=== PATIENT | male | born 1980 | race Caucasian/White ===

== ENCOUNTER 2017-09-19 01:36 | Inpatient (IN) | payer OTHER ==
[~2017-09-19] VITALS: Ht 175.3 cm; Wt 93.9 kg
[2017-09-19 02:37] LABS: HEMATOCRIT 42.9 % (38.0-50.0); HEMOGLOBIN 14.5 G/DL (12.5-16.6); MCH 29.1 PG (29.0-34.0); MCHC 33.8 G/DL (30.0-36.0); PLATELET COUNT 315 K/uL (156-360); RBC DIS.WIDTH-CV 13.4 % (11.8-14.6); RBC DIS.WIDTH-SD 42.1 % (39-53); RED BLOOD COUNT 4.99 M/uL (4.00-5.50); WHITE BLOOD COUNT 6.8 K/uL (4.1-10.2)
[2017-09-19 02:48] LABS: ALBUMIN 4.5 g/dL (3.2-4.8)
[2017-09-19 02:49] LABS: CHLORIDE 111 mEq/L (99-109); POTASSIUM 3.8 mEq/L (3.7-5.4); SODIUM 145 mEq/L (136-147)
[2017-09-19 02:51] LABS: GLUCOSE 92 mg/dL (70-99); TOTAL PROTEIN 7.2 g/dL (6.4-8.3)
[2017-09-19 02:53] LABS: TOTAL BILIRUBIN 0.3 mg/dL (0.0-1.0)
[2017-09-19 02:54] LABS: ALKALINE PHOSPHATASE 93 IU/L (3-129)
[2017-09-19 02:55] LABS: CREATININE 0.8 mg/dL (0.6-1.3)
[2017-09-19 02:56] LABS: AST (GOT) 9 IU/L (2-34); UREA NITROGEN (BUN) 9 mg/dL (9-23)
[2017-09-19 02:57] LABS: ALT (GPT) 12 IU/L (3-49)
[2017-09-19 02:58] LABS: LIPASE 23 U/L (1.0-51.0)
[2017-09-19 03:05] LABS: GFR ESTIMATE (CALCULATED) > 59 mL/min/ (58.99-99999)
[2017-09-19 05:16] LABS: TROP-I INTERPRETATION NEGATIVE; TROPONIN-I < 0.01 ng/mL (0.0-0.30)
[2017-09-19 06:19] LABS: APPEARANCE SL.HAZY ((CLEAR)); BILIRUBIN NEGATIVE; BLOOD NEGATIVE; COLOR YELLOW ((YELLOW)); GLUCOSE (STRIP) NEGATIVE; KETONES NEGATIVE; LEUKOCYTES NEGATIVE; NITRITE NEGATIVE; PROTEIN (STRIP) 30
[2017-09-19 06:25] LABS: BACTERIA RARE /HPF; EPITHELIAL CELLS NONE SEEN /HPF; MUCUS 4+ /LPF; RED BLOOD CELLS 0-5 /HPF (0-5); UCUL ADDED? NO; WHITE BLOOD CELLS 0-5 /HPF (0-5)
[2017-09-19] MEDS ORDERED: MOTRIN IB200 MG PO (08:13)
[2017-09-19 11:50] VITALS: BP 127/82
[2017-09-19 16:33] VITALS: BP 136/85
[2017-09-19 20:09] VITALS: BP 116/57
[2017-09-19 23:52] VITALS: BP 127/70
[2017-09-20 04:16] VITALS: BP 117/68
[2017-09-20 08:10] VITALS: BP 100/57
[2017-09-20 11:32] VITALS: BP 122/70
[2017-09-20 15:10] VITALS: BP 124/74
[2017-09-20 19:15] VITALS: BP 108/62
[2017-09-20 23:05] VITALS: BP 120/63
[2017-09-21 04:00] VITALS: BP 129/76
[2017-09-21 05:31] LABS: HEMATOCRIT 39.9 % (38.0-50.0); HEMOGLOBIN 13.3 G/DL (12.5-16.6); MCH 28.7 PG (29.0-34.0); MCHC 33.3 G/DL (30.0-36.0); PLATELET COUNT 290 K/uL (156-360); RBC DIS.WIDTH-SD 40.7 % (39-53); RED BLOOD COUNT 4.64 M/uL (4.00-5.50); WHITE BLOOD COUNT 5.8 K/uL (4.1-10.2)
[2017-09-21 05:57] LABS: CHLORIDE 110 MEQ/L (99-109); CREATININE 0.8 MG/DL (0.6-1.3); GFR ESTIMATE (CALCULATED) > 59 mL/min/ (58.99-99999); GLUCOSE 83 mg/dL (70-99); POTASSIUM 3.7 MEQ/L (3.7-5.4); SODIUM 141 MEQ/L (136-147); UREA NITROGEN (BUN) 4 mg/dL (9-23)
[2017-09-21 09:00] VITALS: BP 122/76
[2017-09-21 10:50] VITALS: BP 129/72
[2017-09-21 15:13] VITALS: BP 133/80
[2017-09-21 23:21] VITALS: BP 125/60
[2017-09-22 03:47] VITALS: BP 124/84
[2017-09-22 07:13] VITALS: BP 131/78
[2017-09-22 11:30] VITALS: BP 119/63
[2017-09-22 15:34] VITALS: BP 110/66
[2017-09-22 15:37] VITALS: BP 148/79
[2017-09-22 23:16] VITALS: BP 108/58
[2017-09-23 07:35] VITALS: BP 134/79
== END 2017-09-23 09:08 | disposition home or self-care (01) | DRG 395 ==
LOC: EME 01:36 → EDOF 08:18 → 4SOUTH 08:18 → ENRESERV 08:19 → 4SOUTH 16:03 → ENPENDDIS 09-23 → 4SOUTH 09-23 09:08
PROVIDERS: Physician Assistant Surgical
DX: T18.9XXA Foreign body of alimentary tract, part unspecified, initial encounter (principal); W11.XXXA Fall on and from ladder, initial encounter; F17.210 Nicotine dependence, cigarettes, uncomplicated; E11.9 Type 2 diabetes mellitus without complications
CPT/HCPCS: 71046; 74018; 74019; 74177; 80048; 80053; 81003; 83690; 84484; 85027; 99281; 99285; G0378; J2405; J3010; J7030; S0028

== ENCOUNTER 2017-10-29 10:43 | Emergency (ER) | payer OTHER ==
[~2017-10-29] VITALS: Ht 175.3 cm; Wt 93.3 kg
[~2017-10-29 10:43] MED LIST: MOTRIN IB200 MG PO
[2017-10-29 11:54] LABS: BASOPHIL (%) 0.5 % (0-1); EOSINOPHIL (%) 1.8 % (0-5); EOSINOPHIL COUNT 0.1 K/uL (0-0.3); HEMATOCRIT 39.8 % (38.0-50.0); HEMOGLOBIN 13.9 G/DL (12.5-16.6); IMMATURE GRANULOCYTE (%) 0.4 % (0.0-0.7); LYMPHOCYTE (%) 17.9 % (15-42); MCH 28.8 PG (29.0-34.0); MCHC 34.9 G/DL (30.0-36.0); MCV 82.6 FL (86-99); MONOCYTE (%) 6.7 % (3-12); MONOCYTE COUNT 0.4 K/uL (0-0.8); NEUTROPHIL (%) 72.7 % (45-76); PLATELET COUNT 269 K/uL (156-360); RBC DIS.WIDTH-CV 12.5 % (11.8-14.6); RBC DIS.WIDTH-SD 37.9 % (39-53); RED BLOOD COUNT 4.82 M/uL (4.00-5.50); WHITE BLOOD COUNT 5.5 K/uL (4.1-10.2)
[2017-10-29 12:02] LABS: D-DIMER ELISA < 150.00 ng/mLDDU (<230)
[2017-10-29 12:03] LABS: PTT 29.7 SEC (25-37)
[2017-10-29 12:06] LABS: CHLORIDE 106 mEq/L (99-109); POTASSIUM 3.6 mEq/L (3.7-5.4); SODIUM 140 mEq/L (136-147)
[2017-10-29 12:08] LABS: GLUCOSE 103 mg/dL (70-99)
[2017-10-29 12:12] LABS: CREATININE 0.8 mg/dL (0.6-1.3); GFR ESTIMATE (CALCULATED) > 59 mL/min/ (58.99-99999); UREA NITROGEN (BUN) 9 mg/dL (9-23)
[2017-10-29 12:18] LABS: TROP-I INTERPRETATION NEGATIVE; TROPONIN-I < 0.01 ng/mL (0.0-0.30)
[2017-10-29 14:11] LABS: TROP-I INTERPRETATION NEGATIVE; TROPONIN-I < 0.01 ng/mL (0.0-0.30)
[2017-10-29] MEDS ORDERED: MOTRIN800 MG PO (14:50)
[2017-10-29 14:54] VITALS: BP 128/74
== END 2017-10-29 14:59 | disposition home or self-care (01) ==
LOC: EME 10:43
PROVIDERS: Emergency Medicine
DX: R07.89 Other chest pain (principal); F17.200 Nicotine dependence, unspecified, uncomplicated; Z79.891 Long term (current) use of opiate analgesic; Z95.9 Presence of cardiac and vascular implant and graft, unspecified
CPT/HCPCS: 71045; 80048; 84484; 85025; 85379; 85610; 85730; 93005; 99281; 99284; J1885

== ENCOUNTER 2017-11-30 11:52 | Emergency (ER) | payer OTHER ==
[~2017-11-30] VITALS: Ht 175.3 cm; Wt 90.9 kg
[~2017-11-30 11:52] MED LIST changes: +MOTRIN800 MG PO
[2017-11-30 12:21] LABS: HEMATOCRIT 39.5 % (38.0-50.0); HEMOGLOBIN 13.6 G/DL (12.5-16.6); MCH 29.1 PG (29.0-34.0); MCHC 34.4 G/DL (30.0-36.0); MCV 84.6 FL (86-99); PLATELET COUNT 294 K/uL (156-360); RBC DIS.WIDTH-CV 12.5 % (11.8-14.6); RBC DIS.WIDTH-SD 37.9 % (39-53); RED BLOOD COUNT 4.67 M/uL (4.00-5.50); WHITE BLOOD COUNT 7.4 K/uL (4.1-10.2)
[2017-11-30 12:31] LABS: CHLORIDE 106 mEq/L (99-109); POTASSIUM 4.1 mEq/L (3.7-5.4); SODIUM 139 mEq/L (136-147)
[2017-11-30 12:33] LABS: GLUCOSE 134 mg/dL (70-99)
[2017-11-30 12:37] LABS: CREATININE 0.9 mg/dL (0.6-1.3); GFR ESTIMATE (CALCULATED) > 59 mL/min/ (58.99-99999)
[2017-11-30 12:38] LABS: UREA NITROGEN (BUN) 13 mg/dL (9-23)
[2017-11-30 13:54] LABS: APPEARANCE CLEAR ((CLEAR)); BILIRUBIN NEGATIVE; BLOOD NEGATIVE; COLOR STRAW ((YELLOW)); GLUCOSE (STRIP) NEGATIVE; KETONES NEGATIVE; LEUKOCYTES NEGATIVE; NITRITE NEGATIVE; PROTEIN (STRIP) NEGATIVE; SPECIFIC GRAVITY 1.012 (1.000-1.030); UCUL ADDED? NO; UROBILINOGEN 0.2 MG/DL (0.2-1.0)
[2017-11-30 14:22] LABS: SERUM ETHYL ALCOHOL < 10 mg/dL
[2017-11-30] MEDS ORDERED: B-1100 MG PO (15:39)
[2017-11-30] MEDS ORDERED: LIBRIUM25 MG PO (15:39)
[2017-11-30] MEDS ORDERED: ZOFRAN4 MG PO (15:42)
[2017-11-30] MEDS ORDERED: PHENERGAN25 MG PR (15:42)
[2017-11-30 15:51] LABS: AMPHETAMINE NEGATIVE (500 ng/mL); BARBITURATES NEGATIVE (200 ng/mL); BENZODIAZEPINES NEGATIVE (150 ng/mL); BUPRENORPHINE PRESUMPTIVE POSITIVE (10 ng/mL); COCAINE NEGATIVE (150 ng/mL); METHADONE NEGATIVE (200 ng/mL); METHAMPHETAMINE NEGATIVE (500 ng/mL); OPIATES (MORPHINE) NEGATIVE (100 ng/mL); OXYCODONE NEGATIVE (100 ng/mL); PHENCYCLIDINE NEGATIVE (25 ng/mL); PROPOXYPHENE NEGATIVE (300 ng/mL); THC CANNABINOIDS NEGATIVE (50 ng/mL); TRICYCLIC ANTIDEPRESSANTS NEGATIVE (300 ng/mL)
[2017-11-30 16:00] VITALS: BP 150/94
== END 2017-11-30 17:56 | disposition left against medical advice (07) ==
LOC: EME 11:52
PROVIDERS: Nurse Practitioner Family
DX: F10.239 Alcohol dependence with withdrawal, unspecified (principal); R56.9 Unspecified convulsions; R11.2 Nausea with vomiting, unspecified; F11.20 Opioid dependence, uncomplicated; R00.0 Tachycardia, unspecified; Z72.0 Tobacco use
CPT/HCPCS: 80048; 80156; 80184; 80185; 81003; 85027; G0480; J2060; J2405; S0028

== ENCOUNTER 2017-12-20 18:16 | Observation (INO) | payer OTHER ==
[~2017-12-20] VITALS: Ht 175.3 cm; Wt 88.0 kg
[~2017-12-20 18:16] MED LIST changes: +B-1100 MG PO; +LIBRIUM25 MG PO; +PHENERGAN25 MG PR; +ZOFRAN4 MG PO
[2017-12-20 19:15] LABS: BASOPHIL (%) 0.6 % (0-1); BASOPHIL COUNT 0.1 K/uL (0-0.1); EOSINOPHIL (%) 0.1 % (0-5); HEMATOCRIT 33.5 % (38.0-50.0); HEMOGLOBIN 11.9 G/DL (12.5-16.6); IMMATURE GRANULOCYTE (%) 0.4 % (0.0-0.7); LYMPHOCYTE (%) 19.4 % (15-42); LYMPHOCYTE COUNT 1.7 K/uL (1.0-2.8); MCH 28.9 PG (29.0-34.0); MCHC 35.5 G/DL (30.0-36.0); MCV 81.3 FL (86-99); MONOCYTE (%) 8.5 % (3-12); MONOCYTE COUNT 0.7 K/uL (0-0.8); NEUTROPHIL COUNT 6.1 K/uL (1.8-6.4); PLATELET COUNT 314 K/uL (156-360); RBC DIS.WIDTH-CV 12.9 % (11.8-14.6); RBC DIS.WIDTH-SD 37.6 % (39-53); RED BLOOD COUNT 4.12 M/uL (4.00-5.50); WHITE BLOOD COUNT 8.6 K/uL (4.1-10.2)
[2017-12-20 19:29] LABS: ALBUMIN 4.5 g/dL (3.2-4.8); CHLORIDE 106 mEq/L (99-109); POTASSIUM 3.1 mEq/L (3.7-5.4); SODIUM 143 mEq/L (136-147)
[2017-12-20 19:32] LABS: GLUCOSE 103 mg/dL (70-99); TOTAL PROTEIN 7.4 g/dL (6.4-8.3)
[2017-12-20 19:34] LABS: TOTAL BILIRUBIN 0.8 mg/dL (0.0-1.0)
[2017-12-20 19:35] LABS: ALKALINE PHOSPHATASE 76 IU/L (3-129); SERUM ETHYL ALCOHOL < 10 mg/dL
[2017-12-20 19:36] LABS: CREATININE 0.8 mg/dL (0.6-1.3); GFR ESTIMATE (CALCULATED) > 59 mL/min/ (58.99-99999)
[2017-12-20 19:37] LABS: AST (GOT) 15 IU/L (2-34); UREA NITROGEN (BUN) 12 mg/dL (9-23)
[2017-12-20 19:38] LABS: ALT (GPT) 20 IU/L (3-49)
[2017-12-20 19:39] LABS: LIPASE 61 U/L (1.0-51.0)
[2017-12-20 21:40] LABS: APPEARANCE CLEAR ((CLEAR)); BILIRUBIN NEGATIVE; BLOOD NEGATIVE; COLOR YELLOW ((YELLOW)); GLUCOSE (STRIP) NEGATIVE; KETONES 20; LEUKOCYTES NEGATIVE; NITRITE NEGATIVE; PROTEIN (STRIP) 30; UROBILINOGEN 0.2 MG/DL (0.2-1.0)
[2017-12-20 21:42] LABS: SPECIFIC GRAVITY > 1.060 (1.000-1.030)
[2017-12-20 21:49] LABS: AMPHETAMINE NEGATIVE (500 ng/mL); BARBITURATES NEGATIVE (200 ng/mL); BENZODIAZEPINES PRESUMPTIVE POSITIVE (150 ng/mL); BUPRENORPHINE NEGATIVE (10 ng/mL); COCAINE NEGATIVE (150 ng/mL); METHADONE NEGATIVE (200 ng/mL); METHAMPHETAMINE NEGATIVE (500 ng/mL); OPIATES (MORPHINE) NEGATIVE (100 ng/mL); OXYCODONE NEGATIVE (100 ng/mL); PHENCYCLIDINE NEGATIVE (25 ng/mL); PROPOXYPHENE NEGATIVE (300 ng/mL); THC CANNABINOIDS NEGATIVE (50 ng/mL); TRICYCLIC ANTIDEPRESSANTS NEGATIVE (300 ng/mL)
[2017-12-20] MEDS ORDERED: BENTYL10 MG PO (21:59)
[2017-12-20] MEDS ORDERED: ZOFRAN4 MG PO (21:59)
[2017-12-20 22:24] LABS: BENZODIAZEPINES, URINE SCREEN POSITIVE (200 ng/mL)
[2017-12-21 00:54] VITALS: BP 138/82
[2017-12-21 04:22] LABS: BASOPHIL (%) 0.6 % (0-1); EOSINOPHIL (%) 1.3 % (0-5); EOSINOPHIL COUNT 0.1 K/uL (0-0.3); HEMATOCRIT 30.8 % (38.0-50.0); HEMOGLOBIN 10.7 G/DL (12.5-16.6); IMMATURE GRANULOCYTE (%) 0.3 % (0.0-0.7); LYMPHOCYTE (%) 25.8 % (15-42); LYMPHOCYTE COUNT 1.8 K/uL (1.0-2.8); MCH 28.7 PG (29.0-34.0); MCHC 34.7 G/DL (30.0-36.0); MCV 82.6 FL (86-99); MONOCYTE (%) 7.7 % (3-12); MONOCYTE COUNT 0.5 K/uL (0-0.8); NEUTROPHIL (%) 64.3 % (45-76); NEUTROPHIL COUNT 4.5 K/uL (1.8-6.4); PLATELET COUNT 282 K/uL (156-360); RBC DIS.WIDTH-SD 38.8 % (39-53); RED BLOOD COUNT 3.73 M/uL (4.00-5.50)
[2017-12-21 04:32] VITALS: BP 118/67
[2017-12-21 04:37] LABS: ALBUMIN 3.9 g/dL (3.2-4.8); CHLORIDE 109 mEq/L (99-109); POTASSIUM 3.3 mEq/L (3.7-5.4); SODIUM 142 mEq/L (136-147)
[2017-12-21 04:39] LABS: GLUCOSE 89 mg/dL (70-99)
[2017-12-21 04:41] LABS: TOTAL BILIRUBIN 0.8 mg/dL (0.0-1.0)
[2017-12-21 04:43] LABS: ALKALINE PHOSPHATASE 66 IU/L (3-129); CREATININE 0.8 mg/dL (0.6-1.3); GFR ESTIMATE (CALCULATED) > 59 mL/min/ (58.99-99999)
[2017-12-21 04:44] LABS: UREA NITROGEN (BUN) 11 mg/dL (9-23)
[2017-12-21 04:45] LABS: AST (GOT) 12 IU/L (2-34)
[2017-12-21 04:46] LABS: ALT (GPT) 16 IU/L (3-49); LIPASE 59 U/L (1.0-51.0)
[2017-12-21 04:50] LABS: TOTAL PROTEIN 5.9 g/dL (6.4-8.3)
[2017-12-21 06:51] LABS: IRON 87 MCG/DL (35-150); TRANSFERRIN (TIBC) 205.2 mg/dL (215-380); TRANSFERRIN SATUR. 42 % (20-55)
[2017-12-21 08:04] LABS: FERRITIN 83 NG/ML (22-322)
[2017-12-21 08:13] LABS: FOLIC ACID (FOLATE) > 22.0 NG/ML (5.0-22.0)
[2017-12-21 08:37] VITALS: BP 123/68
[2017-12-21 11:57] VITALS: BP 109/56
[2017-12-21 15:31] VITALS: BP 126/73
[2017-12-21 19:00] VITALS: BP 135/76
[2017-12-22 02:41] VITALS: BP 177/86
[2017-12-22 05:11] LABS: CHLORIDE 103 mEq/L (99-109); POTASSIUM 3.1 mEq/L (3.7-5.4); SODIUM 140 mEq/L (136-147)
[2017-12-22 05:12] LABS: GLUCOSE 82 mg/dL (70-99)
[2017-12-22 05:16] LABS: CREATININE 0.8 mg/dL (0.6-1.3); GFR ESTIMATE (CALCULATED) > 59 mL/min/ (58.99-99999)
[2017-12-22 05:17] LABS: UREA NITROGEN (BUN) 7 mg/dL (9-23)
[2017-12-22 05:25] LABS: HEMATOCRIT 35.7 % (38.0-50.0); HEMOGLOBIN 12.6 G/DL (12.5-16.6); MCH 28.8 PG (29.0-34.0); MCHC 35.3 G/DL (30.0-36.0); MCV 81.7 FL (86-99); PLATELET COUNT 357 K/uL (156-360); RBC DIS.WIDTH-CV 12.6 % (11.8-14.6); RBC DIS.WIDTH-SD 37.1 % (39-53); RED BLOOD COUNT 4.37 M/uL (4.00-5.50); WHITE BLOOD COUNT 10.9 K/uL (4.1-10.2)
== END 2017-12-22 07:44 | disposition left against medical advice (07) ==
LOC: EME 18:16 → 4SOUTH 23:16 → EDOF 23:16 → ENRESERV 23:19 → 4SOUTH 12-21 00:41
PROVIDERS: Emergency Medicine; Hospitalist; Physician Assistant
PROC: 0DJ08ZZ Inspection of Upper Intestinal Tract, Via Natural or Artificial Opening Endoscopic (ICD-10-PCS; principal; 2017-12-21)
DX: R10.84 Generalized abdominal pain (principal); R11.2 Nausea with vomiting, unspecified; E87.6 Hypokalemia; T18.2XXA Foreign body in stomach, initial encounter; T65.892A Toxic effect of other specified substances, intentional self-harm, initial encounter; Y92.230 Patient room in hospital as the place of occurrence of the external cause; R45.851 Suicidal ideations; Z87.821 Personal history of retained foreign body fully removed; D50.9 Iron deficiency anemia, unspecified; Z87.891 Personal history of nicotine dependence; G89.29 Other chronic pain
CPT/HCPCS: 71045; 74018; 74177; 80048; 80053; 81003; 82272; 82607; 82728; 82746; 83540; 83690; 84466; 84999; 85025; 85027; 99281; 99285; G0378; G0480; J0330; J0500; J1885; J2270; J2405; J3010; J7030; S0028

== ENCOUNTER 2017-12-25 10:10 | Emergency (ER) | payer OTHER ==
[~2017-12-25] VITALS: Ht 175.3 cm; Wt 87.2 kg
[~2017-12-25 10:10] MED LIST changes: +BENTYL10 MG PO
[2017-12-25 10:20] VITALS: BP 173/107
[2017-12-25 10:49] LABS: HEMATOCRIT 37.6 % (38.0-50.0); HEMOGLOBIN 13.3 G/DL (12.5-16.6); MCH 28.5 PG (29.0-34.0); MCHC 35.4 G/DL (30.0-36.0); MCV 80.7 FL (86-99); PLATELET COUNT 328 K/uL (156-360); RBC DIS.WIDTH-CV 13.2 % (11.8-14.6); RBC DIS.WIDTH-SD 38.1 % (39-53); RED BLOOD COUNT 4.66 M/uL (4.00-5.50); WHITE BLOOD COUNT 7.7 K/uL (4.1-10.2)
[2017-12-25 10:56] LABS: ALBUMIN 4.9 g/dL (3.2-4.8); CHLORIDE 103 mEq/L (99-109); SODIUM 139 mEq/L (136-147)
[2017-12-25 10:58] LABS: GLUCOSE 123 mg/dL (70-99)
[2017-12-25 10:59] LABS: TOTAL PROTEIN 7.8 g/dL (6.4-8.3)
[2017-12-25 11:00] LABS: TOTAL BILIRUBIN 0.7 mg/dL (0.0-1.0)
[2017-12-25 11:02] LABS: ALKALINE PHOSPHATASE 85 IU/L (3-129); CREATININE 0.9 mg/dL (0.6-1.3); GFR ESTIMATE (CALCULATED) > 59 mL/min/ (58.99-99999)
[2017-12-25 11:03] LABS: UREA NITROGEN (BUN) 7 mg/dL (9-23)
[2017-12-25 11:04] LABS: AST (GOT) 12 IU/L (2-34)
[2017-12-25 11:05] LABS: ALT (GPT) 16 IU/L (3-49)
[2017-12-25 11:26] LABS: APPEARANCE CLEAR ((CLEAR)); BILIRUBIN NEGATIVE; BLOOD NEGATIVE; COLOR YELLOW ((YELLOW)); GLUCOSE (STRIP) NEGATIVE; KETONES 5; LEUKOCYTES NEGATIVE; NITRITE NEGATIVE; PROTEIN (STRIP) 30; SPECIFIC GRAVITY 1.025 (1.000-1.030); UCUL ADDED? NO
[2017-12-25 11:34] LABS: AMPHETAMINE NEGATIVE (500 ng/mL); BARBITURATES NEGATIVE (200 ng/mL); BENZODIAZEPINES PRESUMPTIVE POSITIVE (150 ng/mL); BUPRENORPHINE NEGATIVE (10 ng/mL); COCAINE NEGATIVE (150 ng/mL); METHADONE NEGATIVE (200 ng/mL); METHAMPHETAMINE NEGATIVE (500 ng/mL); OPIATES (MORPHINE) NEGATIVE (100 ng/mL); OXYCODONE NEGATIVE (100 ng/mL); PHENCYCLIDINE NEGATIVE (25 ng/mL); PROPOXYPHENE NEGATIVE (300 ng/mL); THC CANNABINOIDS NEGATIVE (50 ng/mL); TRICYCLIC ANTIDEPRESSANTS NEGATIVE (300 ng/mL)
[2017-12-25 12:25] LABS: BENZODIAZEPINES, URINE SCREEN POSITIVE (200 ng/mL)
[2017-12-25] MEDS ORDERED: K-DUR20 MEQ PO (15:20)
[2017-12-25] MEDS ORDERED: TYLENOL EXTRA500 MG PO (19:00)
[2017-12-25] MEDS ORDERED: BENADRYL25 MG PO (19:00)
== END 2017-12-25 11:37 | disposition left against medical advice (07) ==
LOC: EME 10:10
DX: R10.33 Periumbilical pain (principal); F41.9 Anxiety disorder, unspecified; Z87.891 Personal history of nicotine dependence
CPT/HCPCS: 80053; 81003; 84999; 85027; 99281; 99284; J2270

== ENCOUNTER 2017-12-25 12:59 | Emergency (ER) | payer OTHER ==
[2017-12-25 13:15] LABS: BASOPHIL (%) 0.4 % (0-1); EOSINOPHIL (%) 0.4 % (0-5); HEMATOCRIT 36.7 % (38.0-50.0); HEMOGLOBIN 12.9 G/DL (12.5-16.6); IMMATURE GRANULOCYTE (%) 0.3 % (0.0-0.7); LYMPHOCYTE (%) 18.7 % (15-42); LYMPHOCYTE COUNT 1.5 K/uL (1.0-2.8); MCH 28.7 PG (29.0-34.0); MCHC 35.1 G/DL (30.0-36.0); MCV 81.6 FL (86-99); MONOCYTE (%) 7.6 % (3-12); MONOCYTE COUNT 0.6 K/uL (0-0.8); NEUTROPHIL (%) 72.6 % (45-76); NEUTROPHIL COUNT 5.7 K/uL (1.8-6.4); PLATELET COUNT 304 K/uL (156-360); RBC DIS.WIDTH-CV 13.3 % (11.8-14.6); RBC DIS.WIDTH-SD 38.5 % (39-53); WHITE BLOOD COUNT 7.8 K/uL (4.1-10.2)
[2017-12-25 13:25] LABS: AMYLASE 38 IU/L (1-118); CHLORIDE 103 mEq/L (99-109); POTASSIUM 2.9 mEq/L (3.7-5.4); SODIUM 141 mEq/L (136-147)
[2017-12-25 13:27] LABS: GLUCOSE 130 mg/dL (70-99)
[2017-12-25 13:30] LABS: SERUM ETHYL ALCOHOL < 10 mg/dL
[2017-12-25 13:31] LABS: CREATININE 0.9 mg/dL (0.6-1.3); GFR ESTIMATE (CALCULATED) > 59 mL/min/ (58.99-99999)
[2017-12-25 13:32] LABS: UREA NITROGEN (BUN) 7 mg/dL (9-23)
[2017-12-25 13:34] LABS: LIPASE 47 U/L (1.0-51.0)
[2017-12-25 15:04] LABS: AMPHETAMINE NEGATIVE (500 ng/mL); BARBITURATES NEGATIVE (200 ng/mL); BENZODIAZEPINES PRESUMPTIVE POSITIVE (150 ng/mL); BUPRENORPHINE NEGATIVE (10 ng/mL); COCAINE NEGATIVE (150 ng/mL); METHADONE NEGATIVE (200 ng/mL); METHAMPHETAMINE NEGATIVE (500 ng/mL); OPIATES (MORPHINE) PRESUMPTIVE POSITIVE (100 ng/mL); OXYCODONE NEGATIVE (100 ng/mL); PHENCYCLIDINE NEGATIVE (25 ng/mL); PROPOXYPHENE NEGATIVE (300 ng/mL); THC CANNABINOIDS NEGATIVE (50 ng/mL); TRICYCLIC ANTIDEPRESSANTS NEGATIVE (300 ng/mL)
[2017-12-25 15:16] LABS: APPEARANCE CLEAR ((CLEAR)); BILIRUBIN NEGATIVE; BLOOD NEGATIVE; COLOR YELLOW ((YELLOW)); GLUCOSE (STRIP) NEGATIVE; KETONES 5; LEUKOCYTES NEGATIVE; NITRITE NEGATIVE; PROTEIN (STRIP) NEGATIVE; SPECIFIC GRAVITY 1.036 (1.000-1.030); UCUL ADDED? NO; UROBILINOGEN 0.2 MG/DL (0.2-1.0)
[2017-12-25] MEDS ORDERED: K-DUR20 MEQ PO (15:20)
[2017-12-25 15:28] LABS: BENZODIAZEPINES, URINE SCREEN POSITIVE (200 ng/mL)
[2017-12-25] MEDS ORDERED: BENADRYL25 MG PO (19:00)
[2017-12-25] MEDS ORDERED: TYLENOL EXTRA500 MG PO (19:00)
== END 2017-12-25 15:25 | disposition home or self-care (01) ==
LOC: TRA 12:59
PROVIDERS: Emergency Medicine
DX: S20.229A Contusion of unspecified back wall of thorax, initial encounter (principal); R10.9 Unspecified abdominal pain; M54.2 Cervicalgia; M25.552 Pain in left hip; V03.90XA Pedestrian on foot injured in collision with car, pick-up truck or van, unspecified whether traffic or nontraffic accident, initial encounter; Y93.01 Activity, walking, marching and hiking; Y92.410 Unspecified street and highway as the place of occurrence of the external cause; Z91.5 Personal history of self-harm
CPT/HCPCS: 70450; 71260; 72125; 72129; 72132; 73502; 74177; 80048; 81003; 82150; 83690; 84999; 85025; 86850; 86900; 86901; 90832; 99281; 99285; G0480

== ENCOUNTER 2017-12-25 15:57 | Inpatient (IN) | payer OTHER ==
[~2017-12-25] VITALS: Ht 175.3 cm; Wt 94.9 kg
[~2017-12-25 15:57] MED LIST changes: +K-DUR20 MEQ PO
[2017-12-25 17:28] LABS: CHLORIDE 105 mEq/L (99-109); SODIUM 142 mEq/L (136-147)
[2017-12-25 17:29] LABS: GLUCOSE 102 mg/dL (70-99); HEMATOCRIT 36.4 % (38.0-50.0); MCHC 35.7 G/DL (30.0-36.0); MCV 81.3 FL (86-99); PLATELET COUNT 297 K/uL (156-360); RBC DIS.WIDTH-CV 13.2 % (11.8-14.6); RBC DIS.WIDTH-SD 38.1 % (39-53); RED BLOOD COUNT 4.48 M/uL (4.00-5.50)
[2017-12-25 17:33] LABS: CREATININE 0.9 mg/dL (0.6-1.3); GFR ESTIMATE (CALCULATED) > 59 mL/min/ (58.99-99999); SERUM ETHYL ALCOHOL < 10 mg/dL
[2017-12-25 17:35] LABS: UREA NITROGEN (BUN) 6 mg/dL (9-23)
[2017-12-25 17:36] LABS: SALICYLATE < 5.0 MG/DL (15-30)
[2017-12-25 17:37] LABS: ACETAMINOPHEN (TYLENOL) < 10 mcg/mL (10-30)
[2017-12-25 17:51] LABS: AMPHETAMINE NEGATIVE (500 ng/mL); BARBITURATES NEGATIVE (200 ng/mL); BENZODIAZEPINES PRESUMPTIVE POSITIVE (150 ng/mL); BUPRENORPHINE NEGATIVE (10 ng/mL); COCAINE NEGATIVE (150 ng/mL); METHADONE NEGATIVE (200 ng/mL); METHAMPHETAMINE NEGATIVE (500 ng/mL); OPIATES (MORPHINE) PRESUMPTIVE POSITIVE (100 ng/mL); OXYCODONE NEGATIVE (100 ng/mL); PHENCYCLIDINE NEGATIVE (25 ng/mL); PROPOXYPHENE NEGATIVE (300 ng/mL); THC CANNABINOIDS NEGATIVE (50 ng/mL); TRICYCLIC ANTIDEPRESSANTS NEGATIVE (300 ng/mL)
[2017-12-25 18:21] LABS: BENZODIAZEPINES, URINE SCREEN POSITIVE (200 ng/mL)
[2017-12-25] MEDS ORDERED: TYLENOL EXTRA500 MG PO (19:00)
[2017-12-25] MEDS ORDERED: BENADRYL25 MG PO (19:00)
[2017-12-25 20:20] VITALS: BP 142/100
[2017-12-26 08:17] VITALS: BP 121/68
[2017-12-26 16:34] VITALS: BP 133/73
[2017-12-27 07:50] VITALS: BP 115/75
[2017-12-27 16:33] VITALS: BP 109/59
[2017-12-27 20:19] VITALS: BP 155/86
[2017-12-28 08:05] VITALS: BP 142/80
[2017-12-28 16:35] VITALS: BP 125/69
[2017-12-28 21:55] VITALS: BP 128/77
[2017-12-29 10:03] VITALS: BP 112/67
[2017-12-29 16:20] VITALS: BP 137/76
[2017-12-30 07:55] VITALS: BP 134/74
[2017-12-30 17:11] VITALS: BP 119/79
[2017-12-31 08:08] VITALS: BP 111/60
[2017-12-31] MEDS ORDERED: BUPROPION XL300 MG PO (09:22)
[2017-12-31] MEDS ORDERED: Thiamine,Vitamin B1 PO (09:22)
[2017-12-31] MEDS ORDERED: QUETIAPINE FUM100 MG PO (09:22)
[2017-12-31] MEDS ORDERED: FOLIC ACID1 MG PO (09:22)
== END 2017-12-31 09:54 | disposition home or self-care (01) | DRG 885 ==
LOC: EME 15:57 → ENRESERV 20:04 → 1WEST 20:08 → 2SOUTH 20:08 → 1WEST 20:10
PROVIDERS: Emergency Medicine
DX: F31.9 Bipolar disorder, unspecified (principal); R45.851 Suicidal ideations; F11.23 Opioid dependence with withdrawal; Z87.891 Personal history of nicotine dependence; F10.230 Alcohol dependence with withdrawal, uncomplicated; Z56.0 Unemployment, unspecified; F41.9 Anxiety disorder, unspecified
CPT/HCPCS: 70450; 71260; 72125; 72129; 72132; 73502; 74177; 80048; 80048 91; 80053; 81003; 82150; 83690; 84999; 85025; 85027; 86850; 86900; 86901; 90832; 90839; 97165 GO; 99281; 99284; 99285; G0378; G0480; J0572; J2250; J2270; J2405; J7030; Q0177